=== PATIENT | female | born 1935 | race Hispanic/Latino ===

== ENCOUNTER 2017-04-29 19:59 | Observation (INO) | payer OTHER ==
[~2017-04-29] VITALS: Ht 149.9 cm; Wt 66.2 kg
[2017-04-29] MEDS ORDERED: BENZONATATE 100 MG CAPSULE PO ONE (20:51)
[2017-04-29] MEDS ORDERED: ONDANSETRON HCL 4 MG/2 ML VIAL ONE (21:04)
[2017-04-29] MEDS ORDERED: ACETAMINOPHEN 325 MG TAB ONE (22:26)
[2017-04-29 22:59] LABS: BASOPHILS % (AUTO) 0.2 % (0.0-5.0); EOSINOPHILS % (AUTO) 0.1 % (0.0-8.0); HEMATOCRIT 46.2 % (36-48); LYMPHOCYTES % (AUTO) 10.8 % (21.0-51.0); MEAN CORPUSCULAR HEMOGLOBIN 28.4 pg (27.0-33.0); MEAN CORPUSCULAR HGB CONC 33.1 g/dL (32.0-36.0); MEAN CORPUSCULAR VOLUME 85.9 fL (79-99); MONOCYTES % (AUTO) 5.2 % (3.0-13.0); NEUTROPHILS % (AUTO) 83.7 % (40.0-77.0); NUCLEATED RED BLOOD CELLS 0.1 % (0.0-0.19); PLATELET COUNT (AUTO) 212 K/uL (130-400); RED BLOOD CELL COUNT(AUTO) 5.38 MIL/uL (4.00-5.50); RED CELL DISTRIBUTION WIDTH 13.3 % (11.0-15.5); WHITE BLOOD COUNT (AUTO) 11.1 K/uL (4.8-10.8)
[2017-04-29 23:06] LABS: POTASSIUM 3.3 mmol/L (3.5-5.1)
[2017-04-29 23:10] LABS: ALBUMIN 3.5 g/dL (3.5-5.0); BILIRUBIN,TOTAL 0.5 mg/dL (0.2-1.0); TOTAL PROTEIN, SERUM 7.1 g/dL (6.0-8.3)
[2017-04-29] MEDS ORDERED: LEVOFLOXACIN 750 MG/D5W 150 ML 150 ML ONE (23:11)
[2017-04-30] MEDS ORDERED: GLUCAGON 1MG KIT 1 MG ML IM PRN (02:15)
[2017-04-30] MEDS ORDERED: NITROGLYCERIN 0.4 MG SL TAB SL PRN (02:15)
[2017-04-30] MEDS ORDERED: ACETAMINOPHEN 325 MG TAB PO PRN (02:15)
[2017-04-30] MEDS ORDERED: CLONIDINE HCL 0.1 MG TABLET PO PRN (02:15)
[2017-04-30] MEDS ORDERED: LACTULOSE 20 GM/30 ML UDCUP PO PRN (02:15)
[2017-04-30] MEDS ORDERED: DEXTROSE 50%-WATER 50 ML DISP.SYRIN IV PRN (02:15)
[2017-04-30] MEDS ORDERED: POTASSIUM CHLORIDE 10% ELIXIR 20 MEQ/15 ML UDCUP PO PRN (02:15)
[2017-04-30] MEDS ORDERED: LIDOCAINE HCL-MPF 1% 2ML VIAL IVP PRN (02:15)
[2017-04-30] MEDS ORDERED: POTASSIUM CHLORIDE 20MEQ/100ML 100 ML IV PRN (02:15)
[2017-04-30 02:20] VITALS: BP 134/66
[2017-04-30] MEDS: IPRATROPIUM/ALBUTEROL SULFATE 3 ML SOLUTION IH SCH ×4 (03:39→22:08)
[2017-04-30] MEDS ORDERED: DONE5TAB26 PO (03:39)
[2017-04-30] MEDS ORDERED: PRAV10TA39 PO (03:40)
[2017-04-30] MEDS ORDERED: ISOS30TA6 PO (03:42)
[2017-04-30] MEDS ORDERED: METO1TAB41 PO (03:46)
[2017-04-30 03:47] LABS: HEMATOCRIT 44.3 % (36-48); MEAN CORPUSCULAR HEMOGLOBIN 28.7 pg (27.0-33.0); MEAN CORPUSCULAR HGB CONC 33.6 g/dL (32.0-36.0); MEAN CORPUSCULAR VOLUME 85.5 fL (79-99); PLATELET COUNT (AUTO) 187 K/uL (130-400); RED BLOOD CELL COUNT(AUTO) 5.17 MIL/uL (4.00-5.50); RED CELL DISTRIBUTION WIDTH 13.5 % (11.0-15.5); WHITE BLOOD COUNT (AUTO) 10.8 K/uL (4.8-10.8)
[2017-04-30 03:55] LABS: CREATININE 1.1 mg/dL (0.5-1.5); POTASSIUM 3.3 mmol/L (3.5-5.1)
[2017-04-30] MEDS: POTASSIUM CHLORIDE 20 MEQ ERTAB PO PRN ×3 (05:44→11:55)
[2017-04-30] MEDS: INSULIN HUMULIN R 100 UNIT/ML 3ML SQ SCH ×2 (06:23→21:00)
[2017-04-30] MEDS: ACETAMINOPHEN 325 MG TAB PO PRN ×3 (06:35→16:51)
[2017-04-30 08:00] VITALS: BP 141/70
[2017-04-30] MEDS: FAMOTIDINE 20MG TAB 20 MG TAB PO SCH ×2 (08:43→21:24)
[2017-04-30] MEDS ORDERED: LOPERAMIDE HCL 2 MG CAP PO PRN (09:15)
[2017-04-30 11:00] VITALS: BP 145/75
[2017-04-30] MEDS: HYDROCHLOROTHIAZIDE 25 MG TABLET PO SCH (11:58)
[2017-04-30 16:00] VITALS: BP 140/79
[2017-04-30] MEDS: METOPROLOL TARTRATE 25 MG TAB PO SCH (16:47)
[2017-04-30] MEDS ORDERED: ATORVASTATIN CALCIUM 10 MG TABLET PO SCH (17:00)
[2017-04-30] MEDS: ONDANSETRON HCL 4 MG/2 ML VIAL IVP PRN (18:32)
[2017-04-30 20:00] VITALS: BP 123/75
[2017-04-30] MEDS ORDERED: LEVOFLOXACIN 500 MG/D5W 100 ML 100 ML IV SCH (23:00)
[2017-04-30] MEDS ORDERED: SODIUM CHLORIDE 0.9% 500ML 500 ML IV ONE (23:05)
[2017-05-01] VITALS: BP 132/73
[2017-05-01] MEDS: GUAIFENESIN-DM 200/20 MG 10 ML PO PRN ×3 (01:16→09:27)
[2017-05-01 04:00] VITALS: BP 133/73
[2017-05-01 06:18] LABS: CREATININE 1.2 mg/dL (0.5-1.5); POTASSIUM 3.4 mmol/L (3.5-5.1)
[2017-05-01] MEDS: IPRATROPIUM/ALBUTEROL SULFATE 3 ML SOLUTION IH SCH (07:19)
[2017-05-01] MEDS: INSULIN HUMULIN R 100 UNIT/ML 3ML SQ SCH ×2 (07:30→11:30)
[2017-05-01] MEDS ORDERED: LEVO500T2 PO (07:53)
[2017-05-01 08:00] VITALS: BP 124/68
[2017-05-01] MEDS ORDERED: DONEPEZIL HCL 5 MG TAB PO SCH (08:00)
[2017-05-01] MEDS ORDERED: ISOSORBIDE MONO 30MG TAB SR PO SCH (09:00)
[2017-05-01] MEDS: METOPROLOL TARTRATE 25 MG TAB PO SCH (09:05)
[2017-05-01] MEDS: FAMOTIDINE 20MG TAB 20 MG TAB PO SCH (09:08)
[2017-05-01] MEDS: HYDROCHLOROTHIAZIDE 25 MG TABLET PO SCH (09:08)
[2017-05-01] MEDS ORDERED: METRONIDAZOLE 500 MG TABLET ONE (09:18)
[2017-05-01] MEDS ORDERED: METRONIDAZOLE 500 MG TABLET PO SCH (09:27)
[2017-05-01] MEDS: POTASSIUM CHLORIDE 20 MEQ ERTAB PO PRN ×2 (09:28→12:25)
[2017-05-01 11:00] VITALS: BP_SYST 111; BP_DIAS 64; BP_DIAS 70
[2017-05-01] MEDS: ONDANSETRON HCL 4 MG/2 ML VIAL IVP PRN (11:42)
== END 2017-05-01 14:10 | disposition home or self-care (01) ==
LOC: EDH 19:59 → EDHIP 23:25 → 3AH 04-30 01:09
PROVIDERS: ADMIT Internal Medicine; ATTEND Internal Medicine
DX: J18.9 Pneumonia, unspecified organism (principal); K52.9 Noninfective gastroenteritis and colitis, unspecified; E86.0 Dehydration; E78.5 Hyperlipidemia, unspecified; I10 Essential (primary) hypertension; F17.210 Nicotine dependence, cigarettes, uncomplicated; Z90.49 Acquired absence of other specified parts of digestive tract; Z79.899 Other long term (current) drug therapy
CPT/HCPCS: 36415 ×3; 71046; 80048 ×2; 80053; 82948; 85025; 85027; 87205; 87324; 87507; 87804 ×2; 94640 ×4; 94664; 96365; 96375; 96376; 99285; G0378 ×39; J1956 ×2; J2405 ×2; J7040

== ENCOUNTER 2017-09-23 14:15 | Emergency (ER) | payer OTHER ==
[~2017-09-23 14:15] MED LIST: DONE5TAB26 PO; ISOS30TA6 PO; LEVO500T2 PO; METO1TAB41 PO; PRAV10TA39 PO
[2017-09-23 14:55] LABS: BASOPHILS % (AUTO) 0.9 % (0.0-5.0); EOSINOPHILS % (AUTO) 1.3 % (0.0-8.0); HEMATOCRIT 42.6 % (36-48); LYMPHOCYTES % (AUTO) 30.2 % (21.0-51.0); MEAN CORPUSCULAR HEMOGLOBIN 29.3 pg (27.0-33.0); MEAN CORPUSCULAR VOLUME 86.2 fL (79-99); MONOCYTES % (AUTO) 6.2 % (3.0-13.0); NEUTROPHILS % (AUTO) 61.4 % (40.0-77.0); PLATELET COUNT (AUTO) 246 K/uL (130-400); RED BLOOD CELL COUNT(AUTO) 4.94 MIL/uL (4.00-5.50); RED CELL DISTRIBUTION WIDTH 12.9 % (11.0-15.5); WHITE BLOOD COUNT (AUTO) 5.8 K/uL (4.8-10.8)
[2017-09-23 15:07] LABS: APPEARANCE,URINE Clear (CLEAR); BILIRUBIN,URINE Negative (NEGATIVE); COLOR,URINE Yellow (YELLOW); GLUCOSE, URINE (UA) Negative (NEGATIVE); KETONES,URINE Negative (NEGATIVE); LEUKOCYTE ESTERASE ,URINE Negative (NEGATIVE); NITRATE,URINE Negative (NEGATIVE); OCCULT BLOOD,URINE Negative (NEGATIVE); PROTEIN,URINE Negative (NEGATIVE); UROBILINOGEN,URINE 0.2 mg/dL (0.2-1.0)
[2017-09-23] MEDS ORDERED: LIDOCAINE 5% TOPICAL PATCH TP ONE (15:22)
[2017-09-23 15:27] LABS: CREATININE 0.9 mg/dL (0.5-1.5); POTASSIUM 4.1 mmol/L (3.5-5.1)
[2017-09-23 15:31] LABS: ALBUMIN 3.8 g/dL (3.5-5.0); BILIRUBIN,TOTAL 0.4 mg/dL (0.2-1.0); TOTAL PROTEIN, SERUM 7.1 g/dL (6.0-8.3)
== END 2017-09-23 16:27 | disposition home or self-care (01) ==
LOC: EDH 14:15
DX: M51.36 Other intervertebral disc degeneration, lumbar region (principal); M54.42 Lumbago with sciatica, left side; M54.41 Lumbago with sciatica, right side; I10 Essential (primary) hypertension; E78.5 Hyperlipidemia, unspecified; F32.9 Major depressive disorder, single episode, unspecified; Z72.0 Tobacco use
CPT/HCPCS: 36415; 74176; 80053; 81003; 85025

== ENCOUNTER 2018-04-01 01:35 | Emergency (ER) | payer OTHER ==
[2018-04-01] MEDS ORDERED: ACETAMINOPHEN-CODEINE 300/30MG TAB ONE (02:48)
[2018-04-01] MEDS ORDERED: KETOROLAC TROMETHAMINE 30MG/ML ONE (02:48)
== END 2018-04-01 03:33 | disposition home or self-care (01) ==
LOC: EDH 01:35
DX: M62.838 Other muscle spasm (principal); M54.5 Low back pain; F32.9 Major depressive disorder, single episode, unspecified; E78.5 Hyperlipidemia, unspecified; I10 Essential (primary) hypertension; Z90.49 Acquired absence of other specified parts of digestive tract
CPT/HCPCS: 96372; 99283; J1885

== ENCOUNTER 2018-08-24 19:33 | Observation (INO) | payer OTHER ==
[~2018-08-24] VITALS: Ht 152.4 cm; Wt 70.1 kg
[2018-08-24 20:30] LABS: BASOPHILS % (AUTO) 0.6 % (0.0-5.0); EOSINOPHILS % (AUTO) 0.7 % (0.0-8.0); HEMATOCRIT 42.5 % (36-48); LYMPHOCYTES % (AUTO) 22.6 % (21.0-51.0); MEAN CORPUSCULAR HGB CONC 34.5 g/dL (32.0-36.0); MEAN CORPUSCULAR VOLUME 87.1 fL (79-99); MONOCYTES % (AUTO) 5.4 % (3.0-13.0); NEUTROPHILS % (AUTO) 70.7 % (40.0-77.0); PLATELET COUNT (AUTO) 211 K/uL (130-400); RED BLOOD CELL COUNT(AUTO) 4.88 MIL/uL (4.00-5.50); RED CELL DISTRIBUTION WIDTH 13.4 % (11.0-15.5)
[2018-08-24 20:39] LABS: APPEARANCE,URINE Clear (CLEAR); BILIRUBIN,URINE Negative (NEGATIVE); COLOR,URINE Yellow (YELLOW); GLUCOSE, URINE (UA) Negative (NEGATIVE); KETONES,URINE Negative (NEGATIVE); LEUKOCYTE ESTERASE ,URINE Trace (NEGATIVE); NITRATE,URINE Negative (NEGATIVE); OCCULT BLOOD,URINE Small (NEGATIVE); PROTEIN,URINE Negative (NEGATIVE); UROBILINOGEN,URINE 0.2 mg/dL (0.2-1.0)
[2018-08-24 20:59] LABS: BILIRUBIN,TOTAL 0.3 mg/dL (0.2-1.0); CREATININE 0.9 mg/dL (0.5-1.5); POTASSIUM 3.9 mmol/L (3.5-5.1); TOTAL PROTEIN, SERUM 7.4 g/dL (6.0-8.3)
[2018-08-24 21:01] LABS: BACTERIA,URINE Rare /HPF (None Seen)
[2018-08-24 21:02] LABS: SQUAMOUS EPITHELIAL CELL,UR Rare /HPF (0-2)
[2018-08-24] MEDS ORDERED: SODIUM CHLORIDE 0.9% 1000ML 1,000 ML IV ONE (21:22)
[2018-08-24] MEDS ORDERED: IOHEXOL-350 75 ML VIAL IV ONE (21:58)
[2018-08-25] MEDS ORDERED: MORPHINE SULFATE 2 MG/ML 1ML SYG ONE ×2 (00:01→06:50)
[2018-08-25] MEDS ORDERED: LACTATED RINGERS 1000ML 1,000 ML IV SCH (06:30)
[2018-08-25] MEDS ORDERED: LACTATED RINGERS 1000ML 1,000 ML IV ONE (06:39)
[2018-08-25] MEDS ORDERED: OLME1TAB42 PO (17:31)
[2018-08-25] MEDS ORDERED: ESCI20TA36 PO (17:31)
[2018-08-25] MEDS ORDERED: ISOS30TA6 PO (17:31)
[2018-08-25] MEDS ORDERED: PRAV10TA39 PO (17:31)
[2018-08-25] MEDS ORDERED: METO-408 PO (17:31)
[2018-08-25 17:43] VITALS: BP 138/72
[2018-08-25 20:00] VITALS: BP 143/71
[2018-08-25] MEDS ORDERED: MORPHINE SULFATE 2 MG/ML 1ML SYG IVP PRN (21:15)
[2018-08-25] MEDS ORDERED: KETOROLAC TROMETHAMINE 30MG/ML IV PRN (21:15)
[2018-08-25] MEDS ORDERED: ONDANSETRON HCL 4 MG/2 ML VIAL IVP PRN (21:15)
[2018-08-26 00:02] VITALS: BP 153/73
[2018-08-26 03:44] VITALS: BP 142/79
[2018-08-26 08:00] VITALS: BP 159/77
[2018-08-26 12:00] VITALS: BP 122/50
--- NOTE | 2018-08-26 17:30 | NUR ---
PATIENT AWAKE AND ALERT, IN GOOD SPIRITS, GIVEN DISCHARGE INSTRUCTIONS AND EDUCATION, INCLUDING THE NEED TO FOLLOW UP WITH PCP, NO NEW MEDICATIONS. PATIENT VERBALIZED UNDERSTANDING. FAMILY AT BEDSIDE. NO QUESTIONS OR CONCERNS VOICED THIS TIME. IV DISCONTINUED, CATHETER INTACT. NO SIGNS OF DISTRESS NOTED UPON DISCHARGE. PATIENT LEFT VIA WHEELCHAIR TO PRIVATE [facility]YL[facility] WITH FAMILY AT SIDE. ALL BELONGINGS TAKEN WITH. Addendum: 08/26/18 at 1745 by TOM CALLOWAY RN RN Amended: Links added.
== END 2018-08-26 17:20 | disposition home or self-care (01) ==
LOC: EDH 19:33 → EDHIP 08-25 00:50 → 4BH 08-25 16:43
PROVIDERS: ADMIT Surgery; ATTEND Surgery
DX: M54.9 Dorsalgia, unspecified (principal); I10 Essential (primary) hypertension; E78.5 Hyperlipidemia, unspecified; F32.9 Major depressive disorder, single episode, unspecified; Z90.49 Acquired absence of other specified parts of digestive tract; Z79.899 Other long term (current) drug therapy
CPT/HCPCS: 36415; 70450; 71260; 72125; 74177; 80053; 81001; 82550; 84484; 85025; 93005; 99284; G0378 ×40; J7030; J7120; Q9967

== ENCOUNTER → 2019-01-04 | Outpatient (CLI) | payer OTHER ==
--- NOTE | 2019-01-03 12:56 | NUR ---
IV WAS STARTED TO LEFT AC AND ISOTOPES WERE ADMINISTERED FOR SCAN. WHILE WAITING FOR STRESS TEST PT CONSUMED A CUP OF COFFEE, TESTING WAS CANCELED FOR TODAY. PT WAS SCHEDULED TO COME BACK ON 01/04/19 TO COMPLETE STRESS TEST AND SCAN.
[~2019-01-04] VITALS: Ht 152.4 cm; Wt 69.9 kg
[~2019-01-04] MED LIST changes: +ESCI20TA36 PO; +METO-408 PO; +OLME1TAB42 PO; +REGADENOSON 0.4 MG/5 ML PF SYG IVP SCH
== END | disposition home or self-care (01) ==
LOC: SHCH 01-03 08:58
PROVIDERS: ATTEND Internal Medicine Cardiovascular Disease
DX: I25.89 Other forms of chronic ischemic heart disease (principal); I25.10 Atherosclerotic heart disease of native coronary artery without angina pectoris
CPT/HCPCS: 78452; 93017; 96374; A9500 ×2; J2785

== ENCOUNTER 2019-01-21 05:58 | Day surgery (SDC) | payer OTHER ==
[2019-01-17 09:45] VITALS: BP 180/76
[2019-01-17 09:49] LABS: BASOPHILS % (AUTO) 1.3 % (0.0-5.0); EOSINOPHILS % (AUTO) 1.4 % (0.0-8.0); HEMATOCRIT 41.3 % (36-48); LYMPHOCYTES % (AUTO) 29.9 % (21.0-51.0); MEAN CORPUSCULAR HEMOGLOBIN 29.3 pg (27.0-33.0); MEAN CORPUSCULAR HGB CONC 33.5 g/dL (32.0-36.0); MEAN CORPUSCULAR VOLUME 87.7 fL (79-99); MONOCYTES % (AUTO) 5.4 % (3.0-13.0); PLATELET COUNT (AUTO) 209 K/uL (130-400); RED BLOOD CELL COUNT(AUTO) 4.71 MIL/uL (4.00-5.50); RED CELL DISTRIBUTION WIDTH 13.6 % (11.0-15.5)
[2019-01-17 09:55] LABS: POTASSIUM 3.9 mmol/L (3.5-5.1)
[2019-01-17 09:59] LABS: INR 0.94 (0.85-1.15); PARTIAL THROMBOPLASTIN TIME 28.5 SEC (26.3-35.5); PROTHROMBIN TIME 9.9 SEC (9.6-11.6)
[2019-01-17 12:02] LABS: APPEARANCE,URINE Clear (CLEAR); BILIRUBIN,URINE Negative (NEGATIVE); COLOR,URINE Yellow (YELLOW); GLUCOSE, URINE (UA) Negative (NEGATIVE); KETONES,URINE Negative (NEGATIVE); LEUKOCYTE ESTERASE ,URINE Trace (NEGATIVE); NITRATE,URINE Negative (NEGATIVE); OCCULT BLOOD,URINE Large (NEGATIVE); PROTEIN,URINE Negative (NEGATIVE)
[2019-01-17 12:23] LABS: BACTERIA,URINE Rare /HPF (None Seen); RBC,URINE 51-100 /HPF (0-1); SQUAMOUS EPITHELIAL CELL,UR Rare /HPF (0-2); WBC,URINE 0-1 /HPF (0-1)
[~2019-01-21] VITALS: Ht 147.3 cm; Wt 71.8 kg
[2019-01-21] VITALS (10 sets, daily range): BP systolic 112–158; BP diastolic 62–79
[~2019-01-21 05:58] MED LIST changes: -LEVO500T2 PO; -METO-408 PO; -METO1TAB41 PO; +OLME1TAB40 PO; -OLME1TAB42 PO; -REGADENOSON 0.4 MG/5 ML PF SYG IVP SCH; +SODIUM CHLORIDE 0.9% 500ML 500 ML IV SCH
[2019-01-21] MEDS ORDERED: SODIUM CHLORIDE 0.9% 1000ML 1,000 ML IV ONE (06:03)
--- NOTE | 2019-01-21 06:05 | NUR ---
ASSESSMENT PT HERE FOR PROCEDURE. PT DENIES ANY DISCOMFORTS. DAUGHTER AT BEDSIDE.
[2019-01-21] MEDS ORDERED: LIDOCAINE HCL 2% 20ML ONE (07:11)
[2019-01-21] MEDS ORDERED: IOHEXOL 350 MG/ML 100ML INFUS..BTL IV ONE (07:11)
[2019-01-21] MEDS ORDERED: IOHEXOL-350 50ML VIAL IV ONE (07:11)
[2019-01-21] MEDS ORDERED: METO-408 PO (07:11)
[2019-01-21] MEDS ORDERED: HEPARIN SODIUM 1000UNIT/ML 10ML VIAL ONE (07:11)
--- NOTE | 2019-01-21 07:20 | NUR ---
PROCEDURE PT TAKEN TO PROCEDURE VIA BED BY CAN VACUUM TESTER STAFF CHARLIE ENGLISH.
[2019-01-21] MEDS ORDERED: GLUCAGON 1MG KIT 1 MG ML IM PRN (08:15)
[2019-01-21] MEDS ORDERED: DEXTROSE 50%-WATER 50 ML DISP.SYRIN IV PRN (08:15)
--- NOTE | 2019-01-21 08:20 | NUR ---
PROCEDURE PT HERE FROM PROCEDURE BY OPERATING ROOM SURGICAL TECHNICIAN STAFF. PT INSTRUCTED ON IMPORTANCE OF KEEPING RIGHT LEG STRAIGHT AND NOT LIFTING HEAD UP OFF OF BED. BOTH DAUGHTER AND PT VERBALIZED UNDERSTANDING.
--- NOTE | 2019-01-21 11:22 | NUR ---
DISCHARGE ORAL AND WRITTEN DISCHARGE INSTRUCTIONS GIVEN TO PT AND PTS DAUGHTER. NO OTHER QUESTIONS AT THIS TIME. PT SITE TO RIGHT GROIN SOFT TO TOUCH. NO BLEEDING, OOZING NOTED.
== END 2019-01-21 12:00 | disposition home or self-care (01) ==
LOC: DAH 05:58
PROVIDERS: ATTEND Internal Medicine Cardiovascular Disease
DX: I25.10 Atherosclerotic heart disease of native coronary artery without angina pectoris (principal); R94.39 Abnormal result of other cardiovascular function study; I10 Essential (primary) hypertension; K21.9 Gastro-esophageal reflux disease without esophagitis; E11.9 Type 2 diabetes mellitus without complications; Z87.891 Personal history of nicotine dependence; Z79.82 Long term (current) use of aspirin; Z79.899 Other long term (current) drug therapy; Z82.49 Family history of ischemic heart disease and other diseases of the circulatory system; Z79.01 Long term (current) use of anticoagulants
CPT/HCPCS: 36415; 71045; 80048; 81001; 85025; 85610; 85730; 87077; 87088; 87186; 93005; 93458; A4215; A4216; A4221; A4222; A4223 ×3; A4606; C1760; C1894; J1644; J3490; J7030; Q9965; Q9967 ×2

== ENCOUNTER 2020-09-08 07:33 | Emergency (ER) | payer OTHER ==
[~2020-09-08] VITALS: Ht 149.9 cm; Wt 59.0 kg
[~2020-09-08 07:33] MED LIST changes: -ESCI20TA36 PO; +ESCI20TA38 PO; -ISOS30TA6 PO; +ISOS30TA92 PO; +METO-408 PO; +OLME-7 PO; -OLME1TAB40 PO; -SODIUM CHLORIDE 0.9% 500ML 500 ML IV SCH
[2020-09-08 08:23] VITALS: BP 124/82
[2020-09-08 08:59] LABS: BASOPHILS % (AUTO) 0.3 % (0.0-5.0); LYMPHOCYTES % (AUTO) 11.4 % (21.0-51.0); MEAN CORPUSCULAR HEMOGLOBIN 29.1 pg (27.0-33.0); MEAN CORPUSCULAR HGB CONC 33.8 g/dL (32.0-36.0); MEAN CORPUSCULAR VOLUME 86.2 fL (79-99); MONOCYTES % (AUTO) 6.1 % (3.0-13.0); NEUTROPHILS % (AUTO) 81.3 % (40.0-77.0); PLATELET COUNT (AUTO) 161 K/uL (130-400); RED BLOOD CELL COUNT(AUTO) 5.57 MIL/uL (4.00-5.50); RED CELL DISTRIBUTION WIDTH 13.3 % (11.0-15.5)
[2020-09-08 09:10] LABS: CREATININE 1.4 mg/dL (0.5-1.5)
[2020-09-08] MEDS ORDERED: SODIUM CHLORIDE 0.9% 1000ML 1,000 ML IV SCH (09:15)
[2020-09-08] MEDS ORDERED: ONDANSETRON HCL 4 MG/2 ML VIAL IVP SCH (09:15)
[2020-09-08 09:18] LABS: ALBUMIN 3.4 g/dL (3.5-5.0); BILIRUBIN,TOTAL 0.9 mg/dL (0.2-1.0); TOTAL PROTEIN, SERUM 7.6 g/dL (6.0-8.3)
[2020-09-08 09:36] VITALS: BP 120/76
[2020-09-08] MEDS ORDERED: ONDA4TAB4 PO (14:08)
== END 2020-09-08 15:34 | disposition home or self-care (01) ==
LOC: EDH 07:33
DX: E86.0 Dehydration (principal); R11.2 Nausea with vomiting, unspecified; R19.7 Diarrhea, unspecified; E11.9 Type 2 diabetes mellitus without complications; I25.10 Atherosclerotic heart disease of native coronary artery without angina pectoris
CPT/HCPCS: 36415; 71045; 80053; 82150; 83690; 85025; 93005; 96361; 96374; 99285; J2405; J7030

== ENCOUNTER 2021-01-23 23:17 | Inpatient (IN) | payer OTHER ==
[~2021-01-23] VITALS: Ht 149.9 cm; Wt 73.0 kg
[~2021-01-23 23:17] MED LIST changes: +ONDA4TAB4 PO
[2021-01-24] VITALS (17 sets, daily range): BP systolic 72–118; BP diastolic 31–82
[2021-01-24] MEDS ORDERED: MORPHINE 2 MG SYG IVP ONE
[2021-01-24] MEDS ORDERED: ACETAMINOPHEN 325 MG TAB PO ONE
[2021-01-24] MEDS ORDERED: ONDANSETRON 4MG INJ IVP ONE
[2021-01-24 00:09] LABS: BASOPHILS % (AUTO) 0.4 % (0.0-5.0); HEMATOCRIT 45.3 % (36-48); LYMPHOCYTES % (AUTO) 28.2 % (21.0-51.0); MEAN CORPUSCULAR HEMOGLOBIN 29.4 pg (27.0-33.0); MEAN CORPUSCULAR VOLUME 91.7 fL (79-99); MONOCYTES % (AUTO) 0.4 % (3.0-13.0); NEUTROPHILS % (AUTO) 70.2 % (40.0-77.0); PLATELET COUNT (AUTO) 176 K/uL (130-400); RED BLOOD CELL COUNT(AUTO) 4.94 MIL/uL (4.00-5.50); RED CELL DISTRIBUTION WIDTH 12.8 % (11.0-15.5); WHITE BLOOD COUNT (AUTO) 2.5 K/uL (4.8-10.8)
[2021-01-24 00:20] LABS: CREATININE 2.5 mg/dL (0.5-1.5); POTASSIUM 3.6 mmol/L (3.5-5.1)
[2021-01-24 00:24] LABS: ALBUMIN 4.1 g/dL (3.5-5.0); BILIRUBIN,TOTAL 0.7 mg/dL (0.2-1.0)
[2021-01-24] MEDS ORDERED: 0.9%NACL 1000ML 1,000 ML IV ONE ×2 (01:00)
[2021-01-24] MEDS ORDERED: ZOSYN 3.375GM+NS 50ML 3.38 GM in 0.9%NACL 50ML 50 ML IV SCH (01:00)
[2021-01-24] MEDS ORDERED: ZOSYN 3.375GM+NS 50ML 50 ML ONE (01:03)
[2021-01-24] MEDS ORDERED: KETOROLAC 15MG/ML VIAL (15MG/ML) IV ONE (01:30)
[2021-01-24 01:45] LABS: LYMPHOCYTES % (MANUAL) 35 % (22-44); MONOCYTES % (MANUAL) 6 % (2-9); SEGMENTED NEUTROPHILS % 59 % (40-70)
[2021-01-24 01:46] LABS: MAN.DIFF COMMENT-IMPRESSION MANUAL DIFFERENTIAL
[2021-01-24 01:47] LABS: PLATELET MORPHOLOGY COMMENT ADEQUATE
[2021-01-24 03:06] LABS: APPEARANCE,URINE Cloudy (CLEAR); BILIRUBIN,URINE Negative (NEGATIVE); COLOR,URINE Yellow (YELLOW); GLUCOSE, URINE (UA) Negative (NEGATIVE); KETONES,URINE Negative (NEGATIVE); LEUKOCYTE ESTERASE ,URINE Moderate (NEGATIVE); NITRATE,URINE Positive (NEGATIVE); OCCULT BLOOD,URINE Moderate (NEGATIVE); PROTEIN,URINE POS 1+ mg/dL (NEGATIVE)
[2021-01-24 03:21] LABS: BACTERIA,URINE Moderate /HPF (None Seen); WBC,URINE 26-50 /HPF (0-1)
[2021-01-24 03:22] LABS: SQUAMOUS EPITHELIAL CELL,UR Few /HPF (0-2)
[2021-01-24] MEDS ORDERED: ZOLPIDEM TARTRATE 5 MG TAB PO PRN (04:30)
[2021-01-24] MEDS ORDERED: MAG/ALUM/SIMETH 30 ML UDCUP PO PRN (04:30)
[2021-01-24] MEDS ORDERED: ONDANSETRON 4MG INJ IV PRN (04:30)
[2021-01-24] MEDS ORDERED: LACTULOSE 20 GM/30 ML UDCUP PO PRN (04:30)
[2021-01-24] MEDS ORDERED: GUAIFENESIN-DM 200/20 MG 10 ML PO PRN (04:30)
[2021-01-24] MEDS ORDERED: NITROGLYCERIN 0.4 MG SL TAB SL PRN (04:30)
[2021-01-24] MEDS ORDERED: HYDROMORPHONE 1 MG INJ IVP PRN (05:00)
[2021-01-24] MEDS: 0.9%NACL 1000ML 1,000 ML IV SCH ×2 (05:13→14:36)
[2021-01-24] MEDS: FAMOTIDINE 20MG VIAL IV SCH (08:45)
[2021-01-24] MEDS: TAMSULOSIN HCL 0.4 MG CAP.ER.24H PO SCH (08:45)
[2021-01-24] MEDS ORDERED: ENOXAPARIN SODIUM 30 MG/0.3 ML SQ SCH (09:00)
[2021-01-24 12:05] LABS: HEMATOCRIT 37.2 % (36-48); MEAN CORPUSCULAR HEMOGLOBIN 29.8 pg (27.0-33.0); MEAN CORPUSCULAR HGB CONC 32.8 g/dL (32.0-36.0); MEAN CORPUSCULAR VOLUME 90.7 fL (79-99); RED BLOOD CELL COUNT(AUTO) 4.1 MIL/uL (4.00-5.50); RED CELL DISTRIBUTION WIDTH 13.2 % (11.0-15.5); WHITE BLOOD COUNT (AUTO) 23.7 K/uL (4.8-10.8)
[2021-01-24 12:15] LABS: CREATININE 2.9 mg/dL (0.5-1.5); POTASSIUM 3.7 mmol/L (3.5-5.1)
[2021-01-24 12:20] LABS: BILIRUBIN,TOTAL 0.6 mg/dL (0.2-1.0); TOTAL PROTEIN, SERUM 6.3 g/dL (6.0-8.3)
[2021-01-24] MEDS: LACTATED RINGERS 1000ML IV SCH (12:30)
[2021-01-24] MEDS ORDERED: LEVOFLOXACIN 500 MG/D5W 100 ML 100 ML IV SCH (13:00)
[2021-01-24] MEDS ORDERED: RENAL DOSE IV PRN (13:00)
[2021-01-24] MEDS: BUDESONIDE 0.5 MG/2 ML INH IH SCH (13:40)
[2021-01-24 14:07] LABS: INR 1.26 (0.85-1.15); PROTHROMBIN TIME 13.4 SEC (9.6-11.6)
[2021-01-24 14:08] LABS: PARTIAL THROMBOPLASTIN TIME 40.3 SEC (26.3-35.5)
[2021-01-24] MEDS: METRONIDAZOLE 500MG/100ML BAG 100 ML IVPB SCH ×2 (14:36→21:23)
[2021-01-24] MEDS ORDERED: FUROSEMIDE 40MG VIAL IV ONE (15:00)
[2021-01-24] MEDS ORDERED: FUROSEMIDE 40MG VIAL ONE (15:08)
[2021-01-24] MEDS ORDERED: LORAZEPAM 0.5 MG TABLET ONE (15:10)
[2021-01-24] MEDS ORDERED: DEXMEDETOMIDINE 400MCG/NS100ML IV ONE ×2 (15:28→20:08)
[2021-01-24] MEDS ORDERED: ZIPRASIDONE MESYLATE 20 MG/VIAL IM SCH (16:00)
[2021-01-24 16:59] LABS: ABG HCO3 12.2 mmol/L (21.0-28.0); ABG PCO2 25 mmHg (32-45)
[2021-01-24] MEDS: IPRATROPIUM 0.5 MG/2.5 ML INH IH SCH (17:00)
[2021-01-24] MEDS: HEPARIN 5,000 UNIT VIAL SQ SCH ×2 (17:00→20:19)
[2021-01-24] MEDS ORDERED: NOREPINEPHRIN 4MG/NS 250ML 250 ML IV SCH (18:00)
[2021-01-24] MEDS ORDERED: LINA5TAB PO (19:01)
[2021-01-24] MEDS: MEROPENEM 500 MG VIAL IVP SCH (20:49)
[2021-01-25] VITALS (38 sets, daily range): BP systolic 87–147; BP diastolic 37–84
[2021-01-25 04:47] LABS: HEMATOCRIT 38.4 % (36-48); MEAN CORPUSCULAR HEMOGLOBIN 29.3 pg (27.0-33.0); MEAN CORPUSCULAR HGB CONC 32.3 g/dL (32.0-36.0); MEAN CORPUSCULAR VOLUME 90.8 fL (79-99); PLATELET COUNT (AUTO) 123 K/uL (130-400); RED BLOOD CELL COUNT(AUTO) 4.23 MIL/uL (4.00-5.50); RED CELL DISTRIBUTION WIDTH 13.5 % (11.0-15.5); WHITE BLOOD COUNT (AUTO) 22.3 K/uL (4.8-10.8)
[2021-01-25] MEDS ORDERED: DEXMEDETOMIDINE 400MCG/NS100ML IV ONE (04:47)
[2021-01-25 04:50] LABS: INR 1.45 (0.85-1.15); PROTHROMBIN TIME 15.3 SEC (9.6-11.6)
[2021-01-25 04:51] LABS: PARTIAL THROMBOPLASTIN TIME 40.8 SEC (26.3-35.5)
[2021-01-25 05:15] LABS: CREATININE 3.3 mg/dL (0.5-1.5); POTASSIUM 5.9 mmol/L (3.5-5.1)
[2021-01-25 05:41] LABS: BAND NEUTROPHILS % (MANUAL) 2 % (0-2); LYMPHOCYTES % (MANUAL) 5 % (22-44); MAN.DIFF COMMENT-IMPRESSION MANUAL DIFFERENTIAL; MONOCYTES % (MANUAL) 6 % (2-9); SEGMENTED NEUTROPHILS % 87 % (40-70)
[2021-01-25 05:44] LABS: PLATELET MORPHOLOGY COMMENT ADEQUATE
[2021-01-25] MEDS: METRONIDAZOLE 500MG/100ML BAG 100 ML IVPB SCH ×3 (05:59→21:25)
[2021-01-25] MEDS: 0.9%NACL 1000ML 1,000 ML IV SCH ×2 (06:00→16:23)
[2021-01-25] MEDS: BUDESONIDE 0.5 MG/2 ML INH IH SCH ×2 (06:23→18:29)
[2021-01-25] MEDS: IPRATROPIUM 0.5 MG/2.5 ML INH IH SCH ×4 (06:23→23:10)
[2021-01-25 07:59] LABS: ABG BASE EXCESS -8.3 mmol/L (-2.0-3.0); ABG HCO3 15.7 mmol/L (21.0-28.0); ABG OXYGEN SATURATION 95.3 % (95.0-99.0); ABG PCO2 29 mmHg (32-45)
[2021-01-25] MEDS: MEROPENEM 500 MG VIAL IVP SCH ×2 (08:37→20:36)
[2021-01-25] MEDS: FAMOTIDINE 20MG VIAL IV SCH (08:37)
[2021-01-25] MEDS: TAMSULOSIN HCL 0.4 MG CAP.ER.24H PO SCH (08:37)
[2021-01-25 08:46] LABS: CREATININE 3.2 mg/dL (0.5-1.5); POTASSIUM 5.1 mmol/L (3.5-5.1)
[2021-01-25] MEDS ORDERED: MIDAZOLAM HCL 1 MG/ML 2ML VIAL ONE ×2 (09:22→13:13)
[2021-01-25] MEDS ORDERED: FENTANYL CITRATE PF 50 MCG/1 ML 2ML VIAL ONE ×3 (09:22→13:14)
[2021-01-25] MEDS ORDERED: PROPOFOL 10 MG/ML 20ML VIAL IV ONE ×2 (09:24→13:13)
[2021-01-25] MEDS: LACTATED RINGERS 1000ML IV SCH (10:14)
[2021-01-25] MEDS ORDERED: ROCURONIUM 10MG/1ML SYR 10 MG/ML ML ONE ×2 (10:55→13:13)
[2021-01-25] MEDS ORDERED: ONDANSETRON 4MG INJ ONE (13:13)
[2021-01-25] MEDS ORDERED: NEOSTIGMINE 5MG/5ML SYR IV ONE (13:13)
[2021-01-25] MEDS ORDERED: LIDOCAINE PF 100MG/5ML (2%) SYRINGE 5ML ONE (13:13)
[2021-01-25] MEDS ORDERED: SUCCINYLCHOLINE 200MG/10ML SYR ONE (13:13)
[2021-01-25] MEDS ORDERED: DEXAMETHASONE SOD PHOSPHATE 10MG/ML 1ML VIAL ONE (13:13)
[2021-01-25] MEDS ORDERED: GLYCOPYRROLATE 1 MG/5 ML SYRINGE ONE (13:13)
[2021-01-25] MEDS ORDERED: LIDOCAINE HCL 1% MDV 50ML VIAL ONE (14:06)
[2021-01-25] MEDS ORDERED: IODIXANOL 320 MG/ML 100 ML VIAL ONE (14:06)
[2021-01-25] MEDS: HEPARIN 5,000 UNIT VIAL SQ SCH (16:21)
[2021-01-25] MEDS ORDERED: DEXMEDETOMIDINE 400MCG/NS100ML IV SCH (20:30)
[2021-01-26] VITALS (21 sets, daily range): BP systolic 113–155; BP diastolic 57–83
[2021-01-26] MEDS: 0.9%NACL 1000ML 1,000 ML IV SCH (02:07)
[2021-01-26 03:44] LABS: CREATININE 2.1 mg/dL (0.5-1.5); POTASSIUM 4.6 mmol/L (3.5-5.1)
[2021-01-26 03:47] LABS: HEMATOCRIT 36.1 % (36-48); MEAN CORPUSCULAR HEMOGLOBIN 29.8 pg (27.0-33.0); MEAN CORPUSCULAR VOLUME 90.3 fL (79-99); RED CELL DISTRIBUTION WIDTH 13.9 % (11.0-15.5); WHITE BLOOD COUNT (AUTO) 23.4 K/uL (4.8-10.8)
[2021-01-26] MEDS: HEPARIN 5,000 UNIT VIAL SQ SCH ×2 (04:39→16:29)
[2021-01-26] MEDS: METRONIDAZOLE 500MG/100ML BAG 100 ML IVPB SCH ×3 (05:03→21:07)
[2021-01-26] MEDS: IPRATROPIUM 0.5 MG/2.5 ML INH IH SCH ×4 (06:14→23:08)
[2021-01-26] MEDS: BUDESONIDE 0.5 MG/2 ML INH IH SCH ×2 (06:14→18:30)
[2021-01-26] MEDS: MEROPENEM 500 MG VIAL IVP SCH (08:21)
[2021-01-26] MEDS: FAMOTIDINE 20MG VIAL IV SCH (08:21)
[2021-01-26] MEDS: TAMSULOSIN HCL 0.4 MG CAP.ER.24H PO SCH (08:21)
[2021-01-26] MEDS ORDERED: LEVOFLOXACIN 250 MG/D5W 50ML 50 ML IVPB SCH (09:00)
[2021-01-26] MEDS: LORAZEPAM 0.5 MG TABLET PO PRN (09:32)
[2021-01-26] MEDS: CITALOPRAM 20 MG TABLET PO SCH (09:32)
[2021-01-26] MEDS: FUROSEMIDE 40MG VIAL IV SCH (09:32)
[2021-01-26] MEDS: LACTATED RINGERS 1000ML IV SCH (10:47)
[2021-01-26] MEDS: METOPROLOL SUCCINATE 50 MG TAB.SR.24H PO SCH (20:39)
[2021-01-27] MEDS: LORAZEPAM 0.5 MG TABLET PO PRN (00:23)
[2021-01-27 04:00] VITALS: BP 133/76
[2021-01-27 04:22] LABS: HEMATOCRIT 36.5 % (36-48); MEAN CORPUSCULAR HEMOGLOBIN 29.1 pg (27.0-33.0); MEAN CORPUSCULAR HGB CONC 33.2 g/dL (32.0-36.0); MEAN CORPUSCULAR VOLUME 87.7 fL (79-99); RED BLOOD CELL COUNT(AUTO) 4.16 MIL/uL (4.00-5.50); RED CELL DISTRIBUTION WIDTH 13.7 % (11.0-15.5); WHITE BLOOD COUNT (AUTO) 29.2 K/uL (4.8-10.8)
[2021-01-27 04:36] LABS: CREATININE 1.6 mg/dL (0.5-1.5); POTASSIUM 3.7 mmol/L (3.5-5.1)
[2021-01-27] MEDS: METRONIDAZOLE 500MG/100ML BAG 100 ML IVPB SCH ×2 (05:33→14:00)
[2021-01-27] MEDS: HEPARIN 5,000 UNIT VIAL SQ SCH ×2 (05:34→16:12)
[2021-01-27] MEDS: IPRATROPIUM 0.5 MG/2.5 ML INH IH SCH ×4 (06:22→23:10)
[2021-01-27] MEDS: BUDESONIDE 0.5 MG/2 ML INH IH SCH ×2 (06:22→18:31)
[2021-01-27 07:54] VITALS: BP 143/79
[2021-01-27] MEDS: TAMSULOSIN HCL 0.4 MG CAP.ER.24H PO SCH (10:41)
[2021-01-27] MEDS: CITALOPRAM 20 MG TABLET PO SCH (10:41)
[2021-01-27] MEDS: FAMOTIDINE 20MG VIAL IV SCH (10:42)
[2021-01-27] MEDS: ISOSORBIDE MONO 30MG SR TAB PO SCH (10:42)
[2021-01-27] MEDS: FUROSEMIDE 40MG VIAL IV SCH (10:42)
[2021-01-27] MEDS: DONEPEZIL HCL 5 MG TAB PO SCH (10:42)
[2021-01-27 12:00] VITALS: BP 151/83
[2021-01-27] MEDS: CEFTRIAXONE 2GM VIAL IVP SCH (14:00)
[2021-01-27 16:00] VITALS: BP 134/70
[2021-01-27] MEDS ORDERED: FUROSEMIDE 40MG VIAL IV ONE (18:00)
[2021-01-27] MEDS ORDERED: HYDRALAZINE 20MG/ML VIAL IM PRN (18:00)
[2021-01-27 20:00] VITALS: BP 133/79
[2021-01-27] MEDS: OLMESARTAN HCTZ PO SCH (21:00)
[2021-01-27] MEDS: METOPROLOL SUCCINATE 50 MG TAB.SR.24H PO SCH (21:28)
[2021-01-27] MEDS: METRONIDAZOLE 500 MG TABLET PO SCH (21:28)
[2021-01-27 23:15] VITALS: BP 153/77
[2021-01-27] MEDS ORDERED: MORPHINE 4 MG SYG ONE (23:20)
[2021-01-27] MEDS ORDERED: MORPHINE 4 MG SYG IV ONE (23:30)
[2021-01-27] MEDS ORDERED: LORAZEPAM 2 MG/ML 1 ML VIAL IVP ONE (23:30)
[2021-01-28 03:30] VITALS: BP 137/86
[2021-01-28 03:59] LABS: HEMATOCRIT 36.4 % (36-48); MEAN CORPUSCULAR HEMOGLOBIN 28.7 pg (27.0-33.0); MEAN CORPUSCULAR HGB CONC 33.2 g/dL (32.0-36.0); MEAN CORPUSCULAR VOLUME 86.5 fL (79-99); RED BLOOD CELL COUNT(AUTO) 4.21 MIL/uL (4.00-5.50); RED CELL DISTRIBUTION WIDTH 13.5 % (11.0-15.5); WHITE BLOOD COUNT (AUTO) 19.5 K/uL (4.8-10.8)
[2021-01-28 04:18] LABS: ALBUMIN 2.6 g/dL (3.5-5.0); BILIRUBIN,TOTAL 0.4 mg/dL (0.2-1.0); CREATININE 1.6 mg/dL (0.5-1.5); POTASSIUM 3.4 mmol/L (3.5-5.1); TOTAL PROTEIN, SERUM 5.8 g/dL (6.0-8.3)
[2021-01-28] MEDS: METRONIDAZOLE 500 MG TABLET PO SCH ×3 (05:06→21:20)
[2021-01-28] MEDS: HEPARIN 5,000 UNIT VIAL SQ SCH (05:06)
[2021-01-28] MEDS: IPRATROPIUM 0.5 MG/2.5 ML INH IH SCH ×3 (06:50→18:41)
[2021-01-28] MEDS: BUDESONIDE 0.5 MG/2 ML INH IH SCH ×2 (06:50→18:41)
[2021-01-28 07:30] VITALS: BP 140/74
[2021-01-28] MEDS: TAMSULOSIN HCL 0.4 MG CAP.ER.24H PO SCH (09:11)
[2021-01-28] MEDS: FAMOTIDINE 20MG VIAL IV SCH (09:11)
[2021-01-28] MEDS: ISOSORBIDE MONO 30MG SR TAB PO SCH (09:11)
[2021-01-28] MEDS: CITALOPRAM 20 MG TABLET PO SCH (09:11)
[2021-01-28] MEDS: DONEPEZIL HCL 5 MG TAB PO SCH (09:13)
[2021-01-28 11:00] VITALS: BP 136/78
[2021-01-28] MEDS: CEFTRIAXONE 2GM VIAL IVP SCH (14:21)
[2021-01-28 16:00] VITALS: BP 153/81
[2021-01-28 19:00] VITALS: BP 145/85
[2021-01-28] MEDS: OLMESARTAN HCTZ PO SCH (21:00)
[2021-01-28] MEDS: QUETIAPINE FUMARATE 25 MG TAB PO SCH (21:20)
[2021-01-28] MEDS: LORAZEPAM 0.5 MG TABLET PO PRN (21:21)
[2021-01-28] MEDS: METOPROLOL SUCCINATE 50 MG TAB.SR.24H PO SCH (21:32)
[2021-01-28 23:52] VITALS: BP 122/75
[2021-01-29] MEDS: IPRATROPIUM 0.5 MG/2.5 ML INH IH SCH ×3 (00:43→19:03)
[2021-01-29 03:59] VITALS: BP 141/79
[2021-01-29 04:59] LABS: HEMATOCRIT 37.3 % (36-48); MEAN CORPUSCULAR HGB CONC 32.7 g/dL (32.0-36.0); MEAN CORPUSCULAR VOLUME 88.6 fL (79-99); NUCLEATED RED BLOOD CELLS 0.2 % (0.0-0.19); RED BLOOD CELL COUNT(AUTO) 4.21 MIL/uL (4.00-5.50); RED CELL DISTRIBUTION WIDTH 13.4 % (11.0-15.5); WHITE BLOOD COUNT (AUTO) 11.8 K/uL (4.8-10.8)
[2021-01-29 05:20] LABS: CREATININE 1.2 mg/dL (0.5-1.5); POTASSIUM 3.8 mmol/L (3.5-5.1); THYROID STIMULATING HORMONE 4.08 uIU/mL (0.36-3.74)
[2021-01-29] MEDS: METRONIDAZOLE 500 MG TABLET PO SCH ×4 (06:29→22:00)
[2021-01-29] MEDS: BUDESONIDE 0.5 MG/2 ML INH IH SCH ×2 (06:31→19:03)
[2021-01-29 08:00] VITALS: BP 119/64
[2021-01-29] MEDS: CITALOPRAM 20 MG TABLET PO SCH (10:07)
[2021-01-29] MEDS: ISOSORBIDE MONO 30MG SR TAB PO SCH (10:07)
[2021-01-29] MEDS: TAMSULOSIN HCL 0.4 MG CAP.ER.24H PO SCH (10:07)
[2021-01-29] MEDS: DONEPEZIL HCL 5 MG TAB PO SCH (10:07)
[2021-01-29] MEDS: FAMOTIDINE 20MG VIAL IV SCH (10:08)
[2021-01-29] MEDS: QUETIAPINE FUMARATE 25 MG TAB PO SCH ×3 (10:08→21:58)
[2021-01-29] MEDS: LEVOTHYROXINE 50 MCG TABLET PO SCH (10:08)
[2021-01-29 11:33] VITALS: BP 125/71
[2021-01-29] MEDS: CEFTRIAXONE 2GM VIAL IVP SCH (14:45)
[2021-01-29 16:00] VITALS: BP 119/65
[2021-01-29 20:00] VITALS: BP 128/72
[2021-01-29] MEDS: OLMESARTAN HCTZ PO SCH (20:35)
[2021-01-29] MEDS: METOPROLOL SUCCINATE 50 MG TAB.SR.24H PO SCH ×2 (21:00→21:58)
[2021-01-30] VITALS: BP 142/78
[2021-01-30] MEDS: IPRATROPIUM 0.5 MG/2.5 ML INH IH SCH ×2 (00:12→06:28)
[2021-01-30 04:00] VITALS: BP 136/85
[2021-01-30] MEDS: BUDESONIDE 0.5 MG/2 ML INH IH SCH (06:28)
[2021-01-30] MEDS ORDERED: LEVOTHYROXINE 50 MCG TABLET PO SCH (06:30)
[2021-01-30] MEDS: METRONIDAZOLE 500 MG TABLET PO SCH ×2 (07:24→13:05)
[2021-01-30 08:00] VITALS: BP 163/93
[2021-01-30] MEDS: TAMSULOSIN HCL 0.4 MG CAP.ER.24H PO SCH (08:00)
[2021-01-30] MEDS: ISOSORBIDE MONO 30MG SR TAB PO SCH (08:00)
[2021-01-30] MEDS: LEVOTHYROXINE 50 MCG TABLET PO SCH (08:00)
[2021-01-30] MEDS: CITALOPRAM 20 MG TABLET PO SCH (08:00)
[2021-01-30] MEDS: QUETIAPINE FUMARATE 25 MG TAB PO SCH (08:00)
[2021-01-30] MEDS: FAMOTIDINE 20MG VIAL IV SCH (08:00)
[2021-01-30] MEDS: DONEPEZIL HCL 5 MG TAB PO SCH (08:00)
[2021-01-30 12:00] VITALS: BP 129/61
[2021-01-30] MEDS: CEFTRIAXONE 2GM VIAL IVP SCH (13:05)
== END 2021-01-30 15:30 | DRG 871 ==
LOC: EDH 23:17 → OBSVTOIN 01-24 04:23 → EDHIP 01-24 04:23 → 3CH 01-24 15:37 → 2CH 01-24 16:41 → 4CH 01-26 17:35
PROVIDERS: ADMIT Internal Medicine; ATTEND Internal Medicine
PROC: 5A09357 Assistance with Respiratory Ventilation, Less than 24 Consecutive Hours, Continuous Positive Airway Pressure (ICD-10-PCS; 2021-01-24)
PROC: 0T9430Z Drainage of Left Kidney Pelvis with Drainage Device, Percutaneous Approach (ICD-10-PCS; principal; 2021-01-25)
PROC: BT121ZZ Fluoroscopy of Left Kidney using Low Osmolar Contrast (ICD-10-PCS; 2021-01-25)
PROC: 5A09357 Assistance with Respiratory Ventilation, Less than 24 Consecutive Hours, Continuous Positive Airway Pressure (ICD-10-PCS; 2021-01-25)
PROC: 5A09357 Assistance with Respiratory Ventilation, Less than 24 Consecutive Hours, Continuous Positive Airway Pressure (ICD-10-PCS; 2021-01-26)
PROC: 02HV33Z Insertion of Infusion Device into Superior Vena Cava, Percutaneous Approach (ICD-10-PCS; 2021-01-28)
DX: A41.51 Sepsis due to Escherichia coli [E. coli] (principal); J96.01 Acute respiratory failure with hypoxia; G93.41 Metabolic encephalopathy; N17.9 Acute kidney failure, unspecified; N13.6 Pyonephrosis; I12.9 Hypertensive chronic kidney disease with stage 1 through stage 4 chronic kidney disease, or unspecified chronic kidney disease; N18.9 Chronic kidney disease, unspecified; J44.9 Chronic obstructive pulmonary disease, unspecified; E11.22 Type 2 diabetes mellitus with diabetic chronic kidney disease; Z20.822 Contact with and (suspected) exposure to COVID-19; E78.00 Pure hypercholesterolemia, unspecified; R65.20 Severe sepsis without septic shock; E27.8 Other specified disorders of adrenal gland; E78.5 Hyperlipidemia, unspecified; F03.90 Unspecified dementia, unspecified severity, without behavioral disturbance, psychotic disturbance, mood disturbance, and anxiety; B96.89 Other specified bacterial agents as the cause of diseases classified elsewhere; E66.9 Obesity, unspecified; Z68.32 Body mass index [BMI] 32.0-32.9, adult; Z79.84 Long term (current) use of oral hypoglycemic drugs; Z79.51 Long term (current) use of inhaled steroids; Z91.81 History of falling; Z87.891 Personal history of nicotine dependence; Z83.3 Family history of diabetes mellitus
CPT/HCPCS: 36415; 36600; 50432; 71045; 74176; 80048; 80053; 81001; 82550; 82803; 82948; 83605; 83690; 83874; 83880; 84145; 84443; 84484; 85025; 85027; 85378; 85610; 85730; 87040; 87071; 87077; 87088; 87186; 87205; 87635; 87804; 93005; 93306; 93970; 94640; 94660; 94664; 97039; C1729; C1751; C1894; G0378; J0330; J0696; J1100; J1644; J1650; J1885; J1940; J1956; J2001; J2060; J2185; J2250; J2270; J2405; J2543; J2704; J2710; J3010; J3486; J3490; J7030; Q9967

== ENCOUNTER → 2021-03-15 | Outpatient (CLI) | payer OTHER ==
[~2021-03-15] MED LIST changes: +DONE-51 PO; -DONE5TAB26 PO; +LINA5TAB PO; -ONDA4TAB4 PO; -PRAV10TA39 PO
== END | disposition home or self-care (01) ==
LOC: RAH 15:23
PROVIDERS: ATTEND Urology
DX: K56.41 Fecal impaction (principal); M47.815 Spondylosis without myelopathy or radiculopathy, thoracolumbar region; N20.0 Calculus of kidney
CPT/HCPCS: 74018; 76100

== ENCOUNTER 2021-04-06 06:08 | Day surgery (SDC) | payer OTHER ==
[2021-04-05 13:55] VITALS: BP 136/67
[2021-04-05 14:00] LABS: BASOPHILS % (AUTO) 0.6 % (0.0-5.0); EOSINOPHILS % (AUTO) 1.2 % (0.0-8.0); HEMATOCRIT 36.5 % (36-48); LYMPHOCYTES % (AUTO) 24.7 % (21.0-51.0); MEAN CORPUSCULAR HEMOGLOBIN 29.4 pg (27.0-33.0); MEAN CORPUSCULAR HGB CONC 32.9 g/dL (32.0-36.0); MEAN CORPUSCULAR VOLUME 89.5 fL (79-99); MONOCYTES % (AUTO) 5.5 % (3.0-13.0); NEUTROPHILS % (AUTO) 67.4 % (40.0-77.0); PLATELET COUNT (AUTO) 237 K/uL (130-400); RED BLOOD CELL COUNT(AUTO) 4.08 MIL/uL (4.00-5.50); RED CELL DISTRIBUTION WIDTH 13.2 % (11.0-15.5)
[2021-04-05 14:12] LABS: INR 0.99 (0.85-1.15); PROTHROMBIN TIME 10.8 SEC (9.6-11.6)
[2021-04-05 14:14] LABS: PARTIAL THROMBOPLASTIN TIME 29.6 SEC (26.3-35.5)
[2021-04-05 14:16] LABS: CREATININE 1.2 mg/dL (0.5-1.5); POTASSIUM 4.7 mmol/L (3.5-5.1)
[~2021-04-06] VITALS: Ht 152.4 cm; Wt 65.8 kg
[2021-04-06] MEDS ORDERED: 0.9%NACL 1000ML 1,000 ML IV ONE (06:44)
[2021-04-06] MEDS ORDERED: IODIXANOL 320 MG/ML 100 ML VIAL ONE (07:08)
[2021-04-06] MEDS ORDERED: LIDOCAINE HCL 1% MDV 50ML VIAL ONE (07:09)
[2021-04-06] MEDS ORDERED: MIDAZOLAM HCL 1 MG/ML 2ML VIAL ONE (07:24)
[2021-04-06] MEDS ORDERED: FENTANYL CITRATE PF 50 MCG/1 ML 2ML VIAL ONE (07:24)
[2021-04-06 08:15] VITALS: BP 131/82
[2021-04-06 08:30] VITALS: BP 130/78
[2021-04-06 08:45] VITALS: BP 128/78
[2021-04-06 09:00] VITALS: BP 129/77
[2021-04-06 09:15] VITALS: BP 131/74
== END 2021-04-06 09:40 | disposition home or self-care (01) ==
LOC: DAH 06:08
PROVIDERS: ATTEND Urology
DX: N13.2 Hydronephrosis with renal and ureteral calculous obstruction (principal); I10 Essential (primary) hypertension; E78.5 Hyperlipidemia, unspecified; E11.9 Type 2 diabetes mellitus without complications; Z93.6 Other artificial openings of urinary tract status; Z79.01 Long term (current) use of anticoagulants; Z90.49 Acquired absence of other specified parts of digestive tract; Z79.899 Other long term (current) drug therapy
CPT/HCPCS: 36415; 50693; 80048; 82948 ×2; 85025; 85610; 85730; A4215; A4216; A4221; A4222; A4223 ×3; A4606; A4663; C1769; C1894; C2617; J1644; J2250; J3010; J3490; J7030; Q9967; 99156; 99157

== ENCOUNTER → 2021-04-15 | Outpatient (CLI) | payer OTHER | END | disposition home or self-care (01) | LOC: RAH 13:13 | PROVIDERS: ATTEND Urology | DX: N20.2 Calculus of kidney with calculus of ureter (principal); Z96.0 Presence of urogenital implants | CPT/HCPCS: 74018; 76100 ==

== ENCOUNTER → 2021-09-08 | Outpatient (CLI) | payer OTHER | END | disposition home or self-care (01) | LOC: RAH 14:20 | PROVIDERS: ATTEND Family Medicine | DX: N20.0 Calculus of kidney (principal) | CPT/HCPCS: 74018; 76100 ==

== ENCOUNTER → 2021-10-06 | Outpatient (CLI) | payer OTHER | END | disposition home or self-care (01) | LOC: RAH 08:59 | PROVIDERS: ATTEND Urology | DX: N20.0 Calculus of kidney (principal) | CPT/HCPCS: 74018; 76100 ==

== ENCOUNTER → 2021-10-13 | Outpatient (CLI) | payer OTHER ==
[~2021-10-13] MED LIST changes: +IOHEXOL 350 MG/ML 100ML INFUS..BTL IV ONE
== END | disposition home or self-care (01) ==
LOC: RAH 08:54
PROVIDERS: ATTEND Urology
DX: N13.39 Other hydronephrosis (principal)
CPT/HCPCS: 74400; Q9967